=== PATIENT | male | born 1980 | race Caucasian/White ===

== ENCOUNTER 2023-09-01 08:13 | Day surgery (SDC) | payer OTHER ==
[~2023-09-01] VITALS: Ht 182.9 cm; Wt 95.3 kg
[~2023-09-01 08:13] MED LIST: ACET-907 PO; ALEV220T22 PO; ATOR40TA75 PO; D3 H400T PO; PANT40TA29 PO
[2023-09-01] MEDS: NS 1,000 ML IV ONE (08:32)
[2023-09-01] MEDS ORDERED: propofoL 200 MG/20 ML VIAL As Ordered ONE (09:25)
[2023-09-01] MEDS ORDERED: fentaNYL 100 MCG/2 ML INJECTION As Ordered ONE (09:26)
[2023-09-01] MEDS ORDERED: LIDOCAINE 2% 100MG/5ML SDV (FOR ANES.) As Ordered ONE (09:26)
[2023-09-01 10:04] VITALS: TEMP 97.2
[2023-09-01 10:19] VITALS: BP 137/66; O2SAT 98
== END 2023-09-01 10:33 | disposition home or self-care (01) ==
LOC: M OPP 08:13
PROVIDERS: ATTEND Internal Medicine Gastroenterology
DX: K63.5 Polyp of colon (principal); K64.8 Other hemorrhoids; K92.1 Melena; R12 Heartburn; R11.0 Nausea; G47.30 Sleep apnea, unspecified; F17.200 Nicotine dependence, unspecified, uncomplicated; Z79.02 Long term (current) use of antithrombotics/antiplatelets; Z79.1 Long term (current) use of non-steroidal anti-inflammatories (NSAID); Z79.899 Other long term (current) drug therapy
CPT/HCPCS: 43235; 45385; 88305; J3010

== ENCOUNTER → 2025-05-25 | Outpatient (CLI) | payer OTHER | LOC: M LAB 13:29 | PROVIDERS: ATTEND Internal Medicine Gastroenterology | DX: K70.0 Alcoholic fatty liver (principal) ==